=== PATIENT | male | born 2000 | race Caucasian/White ===

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

== ENCOUNTER 2018-04-07 21:17 | Emergency (ER) | payer MEDICAID ==
[~2018-04-07] VITALS: Ht 172.7 cm; Wt 87.0 kg
[2018-04-07] MEDS ORDERED: KETOROLAC TROMETHAMINE 60 MG/2 ML VIAL IM ONE (22:30)
[2018-04-07 23:03] VITALS: BP 135/76
== END 2018-04-07 23:04 | disposition home or self-care (01) ==
LOC: EMS 21:18
DX: M94.0 Chondrocostal junction syndrome [Tietze] (principal); F12.90 Cannabis use, unspecified, uncomplicated
CPT/HCPCS: 71045; 93005; 96372; 99284; J1885

== ENCOUNTER 2018-10-01 00:39 | Emergency (ER) | payer MEDICAID ==
[~2018-10-01] VITALS: Ht 177.8 cm; Wt 86.4 kg
[2018-10-01 00:45] VITALS: BP 144/94
[2018-10-01] MEDS ORDERED: PERTUSS(ACELL),DIPH,TET VAC/PF 0.5 ML VIAL IM ONE (01:45)
== END 2018-10-01 02:00 | disposition home or self-care (01) ==
LOC: EMS 00:40
DX: S61.254D Open bite of right ring finger without damage to nail, subsequent encounter (principal); M19.90 Unspecified osteoarthritis, unspecified site; F12.90 Cannabis use, unspecified, uncomplicated; W50.3XXD Accidental bite by another person, subsequent encounter
CPT/HCPCS: 90471; 90715

== ENCOUNTER 2022-01-28 16:44 | Emergency (ER) | payer MEDICAID ==
[~2022-01-28] VITALS: Ht 177.8 cm; Wt 94.1 kg
[2022-01-28] MEDS ORDERED: BACL10TA PO (20:12)
[2022-01-28 20:25] VITALS: BP 120/79
== END 2022-01-28 20:27 | disposition home or self-care (01) ==
LOC: EMS 16:44
DX: R07.89 Other chest pain (principal); F17.210 Nicotine dependence, cigarettes, uncomplicated; F12.90 Cannabis use, unspecified, uncomplicated
CPT/HCPCS: 93005; 99283

== ENCOUNTER 2023-03-17 11:01 | Emergency (ER) | payer MEDICAID ==
[~2023-03-17] VITALS: Ht 175.3 cm; Wt 93.2 kg
[~2023-03-17 11:01] MED LIST: BACL10TA PO
[2023-03-17 14:02] LABS: BASOPHILS % (AUTO) 0.7 % (0.0-2.0); HEMATOCRIT 43.3 % (41-53); LYMPHOCYTES # (AUTO) 1.7 K/uL (1.0-4.8); LYMPHOCYTES % (AUTO) 17.2 % (22.0-44.0); MEAN CORPUSCULAR HEMOGLOBIN 28.3 pg (26.0-34.0); MEAN CORPUSCULAR HGB CONC 34.6 G/dL (31.0-37.0); MEAN CORPUSCULAR VOLUME 82 fL (80-100); MONOCYTES % (AUTO) 10.5 % (2.0-9.0); NEUTROPHILS # (AUTO) 6.9 K/uL (1.8-7.7); NEUTROPHILS % (AUTO) 70.6 % (40.0-70.0); PLATELET COUNT (AUTO) 275 K/uL (150-450); RED BLOOD CELL COUNT(AUTO) 5.29 MIL/uL (4.50-5.90); RED CELL DISTRIBUTION WIDTH 12.8 % (11.5-14.5)
[2023-03-17 14:14] LABS: ANION GAP 6 mmol/L (8-16); CALCIUM, TOTAL 9.2 mg/dL (8.8-10.5); CARBON DIOXIDE 29 mmol/L (22-29); CHLORIDE 99 mmol/L (98-107); CREATININE 0.98 mg/dL (0.60-1.30); GLOMERULAR FILTR. RATE CALC > 60 mL/min (>60); GLUCOSE,RANDOM 97 mg/dL (70-110); POTASSIUM 4.3 mmol/L (3.5-5.1); SODIUM SERUM 134 mmol/L (136-145)
[2023-03-17 14:17] LABS: URIC ACID 7.3 mg/dL (2.6-7.2)
[2023-03-17] MEDS ORDERED: INDO50CA97 PO (15:14)
[2023-03-17 16:00] VITALS: BP 128/87
[2023-03-17] MEDS ORDERED: HYDR-4400 PO (16:11)
== END 2023-03-17 16:21 | disposition home or self-care (01) ==
LOC: EMS 11:03
DX: M25.572 Pain in left ankle and joints of left foot (principal); M19.90 Unspecified osteoarthritis, unspecified site; F12.90 Cannabis use, unspecified, uncomplicated; Z98.890 Other specified postprocedural states
CPT/HCPCS: 80048; 84550; 85025; 99284

== ENCOUNTER 2023-08-07 13:32 | Emergency (ER) | payer MEDICAID ==
[~2023-08-07] VITALS: Ht 177.8 cm; Wt 77.3 kg
[~2023-08-07 13:32] MED LIST changes: -BACL10TA PO; +HYDR-4400 PO; +INDO50CA97 PO
[2023-08-07 13:39] VITALS: TEMP 98.5
[2023-08-07] MEDS ORDERED: KETOROLAC TROMETHAMINE 60 MG/2 ML VIAL IM ONE (14:30)
[2023-08-07] MEDS ORDERED: OxyCODONE HCL/ACETAMINOPHEN 5-325 MG TABLET PO ONE (15:15)
[2023-08-07] MEDS ORDERED: NAPR-1025 PO (15:29)
[2023-08-07 17:20] VITALS: BP 112/54; PULSE 79; RESP 17
== END 2023-08-07 17:00 | disposition home or self-care (01) ==
LOC: EMS 13:37
DX: M25.572 Pain in left ankle and joints of left foot (principal); M25.532 Pain in left wrist; M79.645 Pain in left finger(s); M25.561 Pain in right knee; M54.2 Cervicalgia; M19.90 Unspecified osteoarthritis, unspecified site; F12.90 Cannabis use, unspecified, uncomplicated; Z98.890 Other specified postprocedural states
CPT/HCPCS: 99284; 73100; 73120; 73600; 96372; J1885

== ENCOUNTER 2024-11-07 21:02 | Emergency (ER) | payer MEDICAID ==
[~2024-11-07] VITALS: Ht 175.3 cm; Wt 86.4 kg
[~2024-11-07 21:02] MED LIST changes: -HYDR-4400 PO; -INDO50CA97 PO; +NAPR-1025 PO
[2024-11-07 21:10] VITALS: BP 135/84; PULSE 72; RESP 16; TEMP 98.2; O2SAT 99
[2024-11-07] MEDS: ACETAMINOPHEN 500 MG TABLET PO ONE (22:41)
[2024-11-07] MEDS: BACITRACIN 0.9 GM PACKET OINTMENT TP ONE (22:41)
[2024-11-07] MEDS: BACITRACIN 28 GM OINTMENT TP ONE (22:51)
== END 2024-11-07 22:57 | disposition home or self-care (01) ==
LOC: EMS 21:02
DX: S01.01XA Laceration without foreign body of scalp, initial encounter (principal); M10.9 Gout, unspecified; X58.XXXA Exposure to other specified factors, initial encounter; Y93.89 Activity, other specified; Y92.89 Other specified places as the place of occurrence of the external cause; Y99.8 Other external cause status
CPT/HCPCS: 99282; 99284; Z7502; Z7610